=== PATIENT | female | born 1995 | race Caucasian/White ===

== ENCOUNTER 2022-11-26 12:49 | Emergency (ER) | payer MEDICARE, SELFPAY ==
[2022-11-26 13:00] VITALS: BP 124/84; PULSE 125; RESP 20; TEMP 37.6; O2SAT 99; BMI 25.8
--- NOTE | 2022-11-26 13:26 | CRLHL7_ITS ---
For Patients: As a result of the Century Cures Act, medical imaging exams and procedure reports are released immediately into your electronic medical record. You may view this report before your referring provider. If you have questions, please contact your health care provider. INDICATION: Cough. TECHNIQUE: Two view chest. FINDINGS: The lungs are clear. The heart, mediastinum and pulmonary vessels are of normal size. There is no evidence of pleural disease. IMPRESSION: Negative chest. Dictated by Devon Perez MD @ 11/26/2022 2:11:06 PM (Electronically Signed)
[2022-11-26 14:00] LABS: PCR FLU A Negative PCR FLU A (Negative); PCR FLU B Negative PCR FLU B (Negative); PCR RSV Negative PCR RSV (Negative)
[2022-11-26 14:05] LABS: SARS PCR* Negative SARS-CoV-2 (Negative)
[2022-11-26 14:16] LABS: Appearance Urine Clear (Clear); Bilirubin Urine Negative (Negative); Blood Urine Negative (Negative); Color Urine Yellow (Yellow); Glucose Urine Negative (Negative); Ketones Urine Trace (Negative); Leukocyte Esterase Urine Negative (Negative); Nitrite Urine Negative (Negative); Protein Urine Negative (Negative); Urobilinogen Urine 0.2 (0.2-1.0); pH Urine 6.5 (5.0-8.5)
[2022-11-26 14:23] LABS: RBC Urine 0-2 (0-2); WBC Urine 0-2 (0-5)
--- NOTE | 2022-11-26 14:27 | ED_ITS ---
HPI - General Adult General Chief complaint: Urogenital Problems, Female Stated complaint: Sick, possible UTI Time Seen by Provider: 11/26/22 12:51 Source: patient Mode of arrival: ambulatory Limitations: no limitations History of Present Illness HPI narrative: 27-year-old female coming in today complaining of not feeling well for about 6 days. She complains of cough congestion. Patient describes her cough as p roductive. She denies fevers or chills. Sleeping well at night. Has decreased appetite however. She denies any recent travel. States that she has come into contact with someone with somewhat similar symptoms. She has some congestion, no pain across her face or teeth. Couple days ago she started having dysuria as well. She denies any blood in her urine, no vaginal discharge. She denies uri nary urgency or frequency. She denies any abdominal pain. She is on control is not sexually active. Patient's past medical history significant for depression, anxiety, fibromyalgia, endometriosis. Of note, she states that her pulse often high because she smokes daily marijuana and this increases her pulse. Related Data Home Medications Medication Instructions Recorded Confirmed gabapentin 100 mg capsule 100 mg PO DAILY 11/26/22 11/26/22 gabapentin 600 mg tablet 1,200 mg PO DAILY 11/26/22 11/26/22 lamotrigine 100 mg tablet 100 mg PO BID 11/26/22 11/26/22 (Lamictal) propranolol 20 mg tablet 20 mg PO PRN 11/26/22 11/26/22 venlafaxine 75 mg capsule,extended 225 mg PO DAILY 11/26/22 11/26/22 release 24 hr (Effexor XR) Allergies Allergy/AdvReac Type Severity Reaction Status Date / Time Penicillins Allergy Intermediate Rash Verified 11/26/22 12:56 Review of Systems Status of ROS: Reports: 10 or more systems reviewed and unremarkable except as noted in History and below PFSH PFS Social History Smoking Status: Never smoker Second hand tobacco smoke exposure: No How often do you have a drink containing alcohol: never How often do you have six or more drinks on one occasion: Never AUDIT-C Alcohol total score: 0 Non-prescribed substance use: denies use service: No Exam Narrative: Exam Narrative: Well-nourished well-developed patient in no acute distress. Alert and oriented. Answers questions appropriately. Mood and affect are appropriate. Thoughts are goal oriented and rational. No tangential or magical thinking noted. Patient speaks in full sentences without needing to catch her breath. HEENT: Normocephalic atraumatic. Pupils are equally round reactive to light. Extraocular muscles are intact. Conjunctivae are moist without any icterus noted. Moist mucous membranes. Posterior pharynx is normal. Neck is soft without any lymphadenopathy or thyromegaly. No masses are appreciated. Cardiovascular: Heart is tachycardic with regular rhythm S1 and S2 are present without any murmurs. Lungs: Clear to auscultation bilaterally no wheezes rhonchi or rales are appreciated. Patient takes deep breaths without any discomfort. Abdomen: Soft and nontender nondistended with normal bowel sounds. Extremities: Bilateral lower extremities are without edema. Skin: Well perfused without any obvious rashes. Const: Vital Signs, click to edit/add: Vital Signs - 24 hr 11/26/22 13:00 Temperature 99.6 F Pulse Rate [Pulse Oximeter] 125 H Respiratory Rate 20 Blood Pressure [Ri ght Upper Arm] 124/84 Pulse Oximetry 99 Oxygen Delivery Me thod Room Air Course Course Hospital Course: Chest x-ray, read by me, does not show any acute infiltrates. UA was unremarkable. Triple swab was negative. Vital Signs Vital signs: Initial Vital Signs Temperature 99.6 F 11/26/22 13:00 Temperature Source Temporal Artery Scan 11/26/22 13:00 Pulse Rate 125 H 11/26/22 13:00 Respiratory Rate 20 11/26/22 13:00 Blood Pressure 124/84 11/26/22 13:00 Blood Pressure Mean 97 11/26/22 13:00 Pulse Oximetry 99 11/26/22 13:00 Oxygen Delivery Method Room Air 11/26/22 13:00 Vital Signs Temperature 99.6 F 11/26/22 13:00 Pulse Rate 125 H 11/26/22 13:00 Respiratory Rate 20 11/26/22 13:00 Blood Pressure 124/84 11/26/22 13:00 Pulse Oximetry 99 11/26/22 13:00 Oxygen Delivery Method Room Air 11/26/22 13:00 Temperature 99.6 F 11/26/22 13:00 Pulse Rate 125 H 11/26/22 13:00 Respiratory Rate 20 11/26/22 13:00 Blood Pressure 124/84 11/26/22 13:00 Pulse Oximetry 99 11/26/22 13:00 Oxygen Delivery Method Room Air 11/26/22 13:00 Medical Decision Making MDM Narrative Medical decision making narrative: 27-year-old female with a URI. We discussed symptomatic treatment reasons for follow-up. She also has some dysuria, we will await urine culture results. Lab Data Lab results reviewed: Yes I reviewed the patient's lab results Labs: Lab Results 11/26/22 11/26/22 Range/Units 13:18 14:00 Urine Color Yellow (Yellow) Urine Appearance Clear (Clear) Urine pH 6.5 (5.0-8.5) Ur Specific [place] 1.010 (1.000-1.030) Urine Protein Negative (Negative) Urine Glucose (UA) Negative (Negative) Urine Ketones Trace A (Negative) Urine Blood Negative (Negative) Urine Nitrite Negative (Negative) Urine Bilirubin Negative (Negative) Urine Urobilinogen 0.2 (0.2-1.0) Ur Leukocyte Esterase Negative (Negative) Urine RBC 0-2 (0-2) Urine WBC 0-2 (0-5) Ur Squamous Epith Cells None (None-Few) Urine Bacteria None (None) SARS-CoV-2 (PCR) Negative SARS-CoV-2 (Negative) Influenza Type A (PCR) Negative PCR FLU A (Negative) Influenza Type B (PCR) Negative PCR FLU B (Negative) RSV (PCR) Negative PCR RSV (Negative) Imaging Data Chest x-ray: Attestation: I have reviewed the pertinent imaging results. Radiologist's impression: TECHNIQUE: Two view chest. FINDINGS: The lungs are clear. The heart, mediastinum and pulmonary vessels are of normal size. There is no evidence of pleural disease. IMPRESSION: Negative chest. Discharge Plan Discharge Clinical Impression: URI (upper respiratory infection), Dysuria Patient Disposition: Home, Self-Care Condition: Stable Additional Instructions: Be sure to get plenty of rest. Okay to use [id number] cough medicine as directed/as needed for symptoms. Return to the ER if you develop a fever or worsening symptoms. A culture of your urine will be done, this will be able to tell us if there are anyone in his arms growing in the urine. If this is positive you will receive a phone call in about 2 days. In the meantime, increase water intake. Prescriptions: No Action gabapentin 100 mg capsule 100 mg PO DAILY gabapentin 600 mg tablet 1,200 mg PO DAILY venlafaxine [Effexor XR] 75 mg capsule,extended release 24hr 225 mg PO DAILY lamotrigine [Lamictal] 100 mg tablet 100 mg PO BID propranolol 20 mg tablet 20 mg PO PRN Follow Up/Referrals: Provider,Not a Local [Primary Care Provider] - Stand Alone Forms: [employer] Info Instructions
== END 2022-11-26 14:51 | disposition home or self-care (01) ==
PROVIDERS: Emergency Provider Family Medicine
DX: J06.9 Acute upper respiratory infection, unspecified (principal); R30.0 Dysuria
CPT/HCPCS: 71046; 81001; 87631; 99283; 99284